=== PATIENT | female | born 1940 | race Hispanic/Latino ===

== ENCOUNTER 2022-03-02 20:22 | Observation (INO) | payer OTHER ==
[~2022-03-02] VITALS: Ht 160 cm; Wt 71.4 kg
[2022-03-02] MEDS ORDERED: ACETAMINOPHEN 500 MG TABLET PO ONE (20:30)
[2022-03-02] MEDS ORDERED: ACETAMINOPHEN 500 MG TABLET ONE (20:58)
[2022-03-02 21:44] LABS: BASOPHILS % (AUTO) 0.4 % (0.0-5.0); EOSINOPHILS % (AUTO) 0.6 % (0.0-8.0); HEMATOCRIT 38.3 % (36-48); MEAN CORPUSCULAR HEMOGLOBIN 30.6 pg (27.0-33.0); MEAN CORPUSCULAR HGB CONC 33.9 g/dL (32.0-36.0); MEAN CORPUSCULAR VOLUME 90.1 fL (79-99); NEUTROPHILS % (AUTO) 74.7 % (40.0-77.0); PLATELET COUNT (AUTO) 219 K/uL (130-400); RED BLOOD CELL COUNT(AUTO) 4.25 MIL/uL (4.00-5.50); WHITE BLOOD COUNT (AUTO) 17.2 K/uL (4.8-10.8)
[2022-03-02 21:53] LABS: POTASSIUM 4.5 mmol/L (3.5-5.1)
[2022-03-02 21:55] LABS: APPEARANCE,URINE CLEAR (CLEAR); BILIRUBIN,URINE NEGATIVE (NEGATIVE); COLOR,URINE YELLOW (YELLOW); GLUCOSE, URINE (UA) NEGATIVE (NEGATIVE); KETONES,URINE 5 mg/dL (NEGATIVE); LEUKOCYTE ESTERASE ,URINE NEGATIVE (NEGATIVE); NITRATE,URINE NEGATIVE (NEGATIVE); OCCULT BLOOD,URINE NEGATIVE (NEGATIVE); PROTEIN,URINE NEGATIVE (NEGATIVE); UROBILINOGEN,URINE 0.2 mg/dL (0.2-1.0)
[2022-03-02 22:02] LABS: ALBUMIN 4.2 g/dL (3.5-5.0); TOTAL PROTEIN, SERUM 7.6 g/dL (6.0-8.3)
[2022-03-02 22:09] LABS: RBC,URINE 0-1 /HPF (0-1)
[2022-03-02 22:10] LABS: BACTERIA,URINE None Seen /HPF (None Seen); SQUAMOUS EPITHELIAL CELL,UR Moderate /HPF (0-2)
[2022-03-02] MEDS ORDERED: CEFTRIAXONE 1G VIAL IVP ONE (22:30)
[2022-03-02] MEDS ORDERED: ONDANSETRON 4MG INJ ONE (22:57)
[2022-03-02] MEDS ORDERED: MORPHINE 2 MG SYG ONE (22:57)
[2022-03-02] MEDS ORDERED: MORPHINE 2 MG SYG IVP ONE (23:00)
[2022-03-02] MEDS ORDERED: ONDANSETRON 4MG INJ IVP ONE (23:00)
[2022-03-02] MEDS ORDERED: DIPHENHYDRAMINE HCL 25 MG CAPSULE PO PRN (23:30)
[2022-03-02] MEDS ORDERED: MORPHINE 2 MG SYG IV PRN (23:30)
[2022-03-02] MEDS ORDERED: ONDANSETRON 4MG INJ IV PRN (23:30)
[2022-03-02] MEDS ORDERED: HYDRALAZINE 20MG/ML VIAL IV PRN (23:30)
[2022-03-02] MEDS ORDERED: CEFTRIAXONE 1G VIAL IV SCH (23:30)
[2022-03-02] MEDS ORDERED: MORPHINE 4 MG SYG IV PRN (23:30)
[2022-03-03 00:37] VITALS: BP 155/79
[2022-03-03] MEDS: 0.9%NACL 1000ML 1,000 ML IV SCH ×2 (03:35→07:58)
[2022-03-03 03:42] VITALS: BP 144/48
[2022-03-03 03:55] LABS: HEMATOCRIT 33.4 % (36-48); MEAN CORPUSCULAR HEMOGLOBIN 30.2 pg (27.0-33.0); MEAN CORPUSCULAR HGB CONC 33.8 g/dL (32.0-36.0); MEAN CORPUSCULAR VOLUME 89.3 fL (79-99); RED BLOOD CELL COUNT(AUTO) 3.74 MIL/uL (4.00-5.50); RED CELL DISTRIBUTION WIDTH 13.9 % (11.0-15.5); WHITE BLOOD COUNT (AUTO) 10.8 K/uL (4.8-10.8)
[2022-03-03 04:05] LABS: CREATININE 1.7 mg/dL (0.5-1.5); POTASSIUM 4.8 mmol/L (3.5-5.1)
[2022-03-03 08:00] VITALS: BP 129/39
[2022-03-03] MEDS ORDERED: FAMOTIDINE 20MG VIAL IV SCH (09:00)
[2022-03-03] MEDS ORDERED: ACET-2079 PO (11:26)
[2022-03-03 12:00] VITALS: BP 139/44
[2022-03-03] MEDS ORDERED: TRAM50TA4 PO ×2 (14:24→15:07)
== END 2022-03-03 12:45 | disposition home or self-care (01) ==
LOC: EDH 20:22 → INTOOBSV 23:12 → EDHIP 23:12 → 4AH 23:44
PROVIDERS: ADMIT Hospitalist; ATTEND Hospitalist
DX: S82.852A Displaced trimalleolar fracture of left lower leg, initial encounter for closed fracture (principal); Z20.822 Contact with and (suspected) exposure to COVID-19; S82.842A Displaced bimalleolar fracture of left lower leg, initial encounter for closed fracture; E11.65 Type 2 diabetes mellitus with hyperglycemia; I12.9 Hypertensive chronic kidney disease with stage 1 through stage 4 chronic kidney disease, or unspecified chronic kidney disease; E11.22 Type 2 diabetes mellitus with diabetic chronic kidney disease; N18.2 Chronic kidney disease, stage 2 (mild); N28.9 Disorder of kidney and ureter, unspecified; E66.9 Obesity, unspecified; E78.00 Pure hypercholesterolemia, unspecified; D72.829 Elevated white blood cell count, unspecified; W01.0XXA Fall on same level from slipping, tripping and stumbling without subsequent striking against object, initial encounter; Y93.89 Activity, other specified; Y92.89 Other specified places as the place of occurrence of the external cause; Z79.899 Other long term (current) drug therapy
CPT/HCPCS: 99285; 96374; 71045; 96375 ×2; 87635; 84484 ×2; 80053; 83880; 85025; 86850; 86900; 86901; 87040 ×2; 81001; 36415 ×2; 73610; 73630; 51702; 93005; 96361; 96376; 80048; 85027; 82948 ×2; C9803; J0696; J2405; G0378; J3490; J2270